=== PATIENT | male | born 1945 | race Caucasian/White ===

== ENCOUNTER 2016-08-28 12:51 | Emergency (ER) | payer OTHER ==
[~2016-08-28] VITALS: Ht 167.6 cm; Wt 74.5 kg
[~2016-08-28 12:51] MED LIST: CELE20TA PO; GLUCPOW27; HYZA100T2 PO; MOBI7.5T PO; PROT40TA PO; ZETI10TA5 PO
[2016-08-28 12:58] VITALS: BP 136/83; PULSE 52; RESP 16; TEMP 98.2; O2SAT 94
[2016-08-28 13:09] LABS: BLOOD, URINE NEG (NEG); GLUCOSE,URINE NEG (NEG); KETONE, URINE TRACE mg/dL (NEG); NITRITE,URINE NEG (NEG)
[2016-08-28] MEDS ORDERED: ZETI10TA5 PO (13:16)
[2016-08-28] MEDS ORDERED: NAME10TA PO (13:16)
[2016-08-28] MEDS ORDERED: ROBA750T PO (13:16)
[2016-08-28] MEDS ORDERED: LISI10TA3 PO (13:16)
[2016-08-28] MEDS ORDERED: ARIC10TA PO (13:16)
--- NOTE | 2016-08-28 13:20 | PD ---
HPI Chief Complaint: Complaint Time Seen by Provider: 13:20 Travel History International Travel<30 days: No Contact w/Intl Traveler<30days: No Traveled to known affect area: No History of Present Illness HPI 71 year old male with PMH of HTN, HLD presents to the ED for evaluation of less than 12 hour history of left-sided back pain, occasionally radiating to the right side. Patient denies midline back pain, numbness, tingling, weakness, limitations to range of motion of the legs. Onset this morning while at rest. Patient denies associated chest pain, palpitations. He does complain of shortness of breath and intermittent, nonproductive cough. The patient denies abdominal pain, nausea, vomiting, dysuria, increased urinary frequency, hematuria. Endorses daily nonbloody bowel movement. Denies swelling in the lower extremities. Denies recent long periods of immobilization. Patient takes lisinopril for hypertension. PFSH Past Medical History Depression: Yes High Cholesterol: Yes Dementia: Yes Hypertension: Yes Medical other: Yes (VERY POOR HISTORIAN) Influenza Vaccination: Yes Past Surgical History Appendectomy: Yes Other Surgery: Yes (HEMORRHOIDECTOMY) Social History Alcohol Use: Yes (DAILY) Tobacco Use: No Substance Use: No Allergies-Medications (Allergen,Severity, Reaction): Coded Allergies: No Known Allergies (Unverified , 08/28/16) Reported Meds & Prescriptions Reported Meds & Active Scripts Active Naprosyn (Naproxen) 500 Mg Tab 500 Mg PO BID Flexeril (Cyclobenzaprine HCl) 5 Mg Tab 5 Mg PO TID Reported Namenda (Memantine) 10 Mg Tab 10 Mg PO DAILY Aricept (Donepezil) 10 Mg Tab 10 Mg PO HS Robaxin (Methocarbamol) 750 Mg Tab 1,500 Mg PO TID Lisinopril 10 Mg Tab 10 Mg PO DAILY Zetia (Ezetimibe) 10 Mg Tab 10 Mg PO DAILY Review of Systems Except as stated in HPI: all other systems reviewed are Neg Physical Exam Narrative GENERAL: Well-nourished, well-developed white male in no acute distress. SKIN: Warm and dry. No rashes noted. HEAD: Normocephalic. EYES: No scleral icterus. No injection or drainage. NECK: Supple, trachea midline. No JVD or lymphadenopathy. CARDIOVASCULAR: Regular rate and rhythm without murmurs, gallops, or rubs. 2+ DP and radial pulses bilaterally. RESPIRATORY: Breath sounds clear and equal bilaterally. No accessory muscle use. GASTROINTESTINAL: Abdomen soft, non-tender, nondistended. Active bowel sounds. MUSCULOSKELETAL: No cyanosis, or edema. 5/5 strength in lower extremities. BACK: Nontender without obvious deformity. No CVA tenderness. Data Data Last Documented VS Vital Signs Date Time Temp Pulse Resp B/P Pulse Ox O2 Delivery O2 Flow Rate FiO2 08/28/16 12:58 98.2 52 16 136/83 94 Orders Urinalysis - C+S If Indicated (08/28/16 13:01) Electrocardiogram (08/28/16 13:49) Ckmb (Isoenzyme) Profile (08/28/16 13:49) Complete Blood Count With Diff (08/28/16 13:49) Comprehensive Metabolic Panel (08/28/16 13:49) D-Dimer (08/28/16 13:49) Magnesium (Mg) (08/28/16 13:49) Prothrombin Time / Inr (Pt) (08/28/16 13:49) Act Partial Throm Time (Ptt) (08/28/16 13:49) Troponin I (08/28/16 13:49) Chest, Single Ap (08/28/16 13:49) CKMB (08/28/16 14:00) CKMB% (08/28/16 14:00) Labs Laboratory Tests Test 08/28/16 08/28/16 13:00 14:00 Urine Collection Type CLEAN CATCH Urine Color YELLOW Urine Turbidity CLEAR Urine pH 6.0 Urine Specific [place] 1.020 Urine Protein NEG mg/dL Urine Glucose (UA) NEG mg/dL Urine Ketones TRACE mg/dL Urine Occult Blood NEG Urine Nitrite NEG Urine Bilirubin NEG Urine Leukocyte Esterase NEG Urine Squamous Epithelial 0-5 /hpf Cells Microscopic Urinalysis Comment CULT NOT INDICATED White Blood Count 6.3 TH/MM3 Red Blood Count 4.46 MIL/MM3 Hemoglobin 14.1 GM/DL Hematocrit 42.0 % Mean Corpuscular Volume 94.1 FL Mean Corpuscular Hemoglobin 31.7 PG Mean Corpuscular Hemoglobin 33.7 % Concent Red Cell Distribution Width 12.6 % Platelet Count 246 TH/MM3 Mean Platelet Volume 7.3 FL Neutrophils (%) (Auto) 55.3 % Lymphocytes (%) (Auto) 26.3 % Monocytes (%) (Auto) 12.4 % Eosinophils (%) (Auto) 4.4 % Basophils (%) (Auto) 1.6 % Neutrophils # (Auto) 3.4 TH/MM3 Lymphocytes # (Auto) 1.7 TH/MM3 Monocytes # (Auto) 0.8 TH/MM3 Eosinophils # (Auto) 0.3 TH/MM3 Basophils # (Auto) 0.1 TH/MM3 CBC Comment DIFF FINAL Differential Comment Prothrombin Time 10.2 SEC Prothromb Time International 0.9 RATIO Ratio Activated Partial 26.6 SEC Thromboplast Time D-Dimer Quantitative (PE/DVT) 0.38 MG/L FEU Sodium Level 146 MEQ/L Potassium Level 4.1 MEQ/L Chloride Level 112 MEQ/L Carbon Dioxide Level 25.2 MEQ/L Anion Gap 9 MEQ/L Blood Urea Nitrogen 14 MG/DL Creatinine 1.10 MG/DL Estimat Glomerular Filtration 66 ML/MIN Rate Random Glucose 81 MG/DL Calcium Level 8.4 MG/DL Magnesium Level 2.2 MG/DL Total Bilirubin 0.6 MG/DL Aspartate Amino Transf 22 U/L (AST/SGOT) Alanine Aminotransferase 34 U/L (ALT/SGPT) Alkaline Phosphatase 91 U/L Total Creatine Kinase 193 U/L Creatine Kinase MB 1.3 NG/ML Troponin I LESS THAN 0.02 NG/ML Total Protein 6.9 GM/DL Albumin 3.6 GM/DL [facility] Medical Decision Making Medical Screen Exam Complete: Yes Emergency Medical Condition: Yes Interpretation(s) EKG rate 49, possible ectopic atrial bradycardia. QRS 94 ms, IL 180 ms, QTC 417. Normal axis. No ischemic changes. Reviewed by Dr. Moore. Differential Diagnosis Musculoskeletal pain versus pyelonephritis versus pneumonia versus PE versus ACS versus less likely AAA versus other Narrative Course 71 year old male with PMH of HTN, HLD presents to the ED for evaluation of less than 12 hour history of left-sided back pain, occasionally radiating to the right side. Patient denies midline back pain, numbness, tingling, weakness, limitations to range of motion of the legs. Onset this morning while at rest. Patient denies associated chest pain, palpitations. He does complain of shortness of breath and intermittent, nonproductive cough. The patient denies abdominal pain, nausea, vomiting, dysuria, increased urinary frequency, hematuria. Endorses daily nonbloody bowel movement. Denies swelling in the lower extremities. Denies recent long periods of immobilization. Patient takes lisinopril for hypertension. Vitals reviewed. Physical exam reveals a nontoxic-appearing white male in no acute distress. Chest is clear to auscultation bilaterally. Abdomen soft, nontender. No CVA tenderness. No tenderness to palpation of the paraspinal musculature. Neurovascularly intact. CBC: No leukocytosis or anemia. CMP: Unremarkable. Cardiac enzymes negative. D-dimer negative UA: No culture indicated. EKG as above Given the negative workup suspect this may be muscle spasm, muscle skeletal pain. Patient was prescribed 500 mg naproxen twice a day as well as Flexeril 3 times a day when necessary for muscle spasm. The patient is prescribed Robaxin daily. I cautioned him not to take these medications together, to discontinue Robaxin and trial Flexeril for possible improvement of pain. Instructed to follow up with his primary care provider for further evaluation. He indicated understanding of instructions and is amenable to plan of care. This patient is stable and discharged home. Diagnosis Primary Impression: Muscle spasm of back Referrals: Primary Care Physician Patient Instructions: General Instructions, Muscle Spasm (ED), Musculoskeletal Pain (ED) Additional Instructions: Rest, hydrate. Return to normal, gentle activity as tolerated. Take medications as prescribed. Do not drive while taking Flexeril. Ask your doctor about cough related to lisinopril. Follow up with primary care provider on Tuesday. Return to the ED for any urgent or emergent medical condition. Med/Other Pt SpecificInfo: Prescription(s) given Scripts Naproxen (Naprosyn)500 Mg [id number] Mg PO BID #10 TAB Ref 0 Prov:Melani Mitchell DO 08/28/16 Cyclobenzaprine (Flexeril)5 Mg Tab5 Mg PO TID #12 TAB Ref 0 Prov:Melani Mitchell DO 08/28/16 Disposition: 01 DISCHARGE HOME Condition: Stable Darby Stephens Aug 28, 2016 13:20
[2016-08-28 13:39] LABS: METHOD OF COLLECTION CLEAN CATCH; URINE COLOR YELLOW (YELLW/STRAW)
[2016-08-28 13:40] LABS: COMMENT (UR) CULT NOT INDICATED; CULTURE IF INDICATED CULT NOT INDICATED; SQUAMOUS EPITHELIAL CELL URINE 0-5 /hpf (0-5)
[2016-08-28 14:16] LABS: AUTOMATED NEUTROPHIL # 3.4 TH/MM3 (1.8-7.7); BASOPHIL # 0.1 TH/MM3 (0-0.2); BASOPHIL % 1.6 % (0.0-2.0); EOSINOPHIL # 0.3 TH/MM3 (0-0.4); EOSINOPHIL % 4.4 % (0.0-4.0); HEMO FLAGS DIFF FINAL; LYMPH % 26.3 % (9.0-44.0); LYMPHOCYTE # 1.7 TH/MM3 (1.0-4.8); MEAN CELL VOLUME 94.1 FL (80.0-100.0); MEAN CORPUSCULAR HEMOGLOBIN 31.7 PG (27.0-34.0); MEAN CORPUSCULAR HGB CONC 33.7 % (32.0-36.0); MONO % 12.4 % (0.0-8.0); NEUT % 55.3 % (16.0-70.0); PLATELET COUNT 246 TH/MM3 (150-450); RED BLOOD COUNT 4.46 MIL/MM3 (4.50-5.90); RED CELL DISTRIBUTION WIDTH 12.6 % (11.6-17.2); WHITE BLOOD COUNT 6.3 TH/MM3 (4.0-11.0)
--- NOTE | 2016-08-28 14:34 | RADHPO ---
EXAM DATE/TIME: 08/28/2016 14:09 [facility] COMPARISON: No previous studies available for comparison. INDICATIONS : Left side chest pain for one day. MEDICAL HISTORY : None. SURGICAL HISTORY : None. ENCOUNTER: Initial ACUITY: 1 day PAIN SCORE: 6/10 LOCATION: Left chest FINDINGS: A single view of the chest demonstrates the lungs to be symmetrically aerated without evidence of mas s, infiltrate or effusion. The cardiomediastinal contours are unremarkable. Osseous structures are intact. CONCLUSION: No acute disease. Barry Watson MD on August 28, 2016 at 14:33 Board Certified Radiologist. This report was verified electronically.
[2016-08-28 14:35] LABS: CHLORIDE 112 MEQ/L (98-107); POTASSIUM 4.1 MEQ/L (3.5-5.1); SODIUM (NA) 146 MEQ/L (136-145)
[2016-08-28 14:38] LABS: ANION GAP 9 MEQ/L (5-15); BICARBONATE 25.2 MEQ/L (21.0-32.0); MAGNESIUM 2.2 MG/DL (1.5-2.5)
[2016-08-28 14:39] LABS: BLOOD UREA NITROGEN 14 MG/DL (7-18)
[2016-08-28 14:41] LABS: ALT (GPT) 34 U/L (12-78)
[2016-08-28 14:42] LABS: AST (GOT) 22 U/L (15-37); GLOMERULAR FILTRATION RATE 66 ML/MIN (>89)
[2016-08-28 14:43] LABS: TOTAL BILIRUBIN ADULT 0.6 MG/DL (0.2-1.0)
[2016-08-28 14:44] LABS: ALKALINE PHOSPHATASE 91 U/L (45-117); APTT (PATIENT) 26.6 SEC (24.3-30.1); CREATINE KINASE 193 U/L (39-308); INTERNATIONAL NORMALIZED RATIO 0.9 RATIO; PROTHROMBIN TIME - PATIENT 10.2 SEC (9.8-11.6)
[2016-08-28 14:58] LABS: CKMB 1.3 NG/ML (0.5-3.6)
[2016-08-28] MEDS ORDERED: CYCL5TAB PO (15:16)
[2016-08-28] MEDS ORDERED: NAPR500 PO (15:16)
--- NOTE | 2016-08-30 07:14 | EKG ---
Date Performed: 08/28/2016 Time Performed: 13:58:24 PTAGE: 71 years EKG: Possible ectopic atrial bradycardia Septal T wave changes are nonspecific Borderline ECG NO PREVIOUS TRACING DOCTOR: Sammy Clinton Interpretating Date/Time 08/30/2016 07:13:33
== END 2016-08-28 15:22 | disposition home or self-care (01) ==
LOC: PHEFT 12:51
DX: M62.830 Muscle spasm of back (principal); F10.20 Alcohol dependence, uncomplicated; F32.9 Major depressive disorder, single episode, unspecified; E78.00 Pure hypercholesterolemia, unspecified; F03.90 Unspecified dementia, unspecified severity, without behavioral disturbance, psychotic disturbance, mood disturbance, and anxiety; I10 Essential (primary) hypertension
CPT/HCPCS: 71010; 80053; 81001; 82550; 82552; 83735; 84484; 85025; 85379; 85610; 85730; 93005